=== PATIENT | male | born 1945 | race Caucasian/White ===

== ENCOUNTER 2020-01-25 11:34 | Inpatient (IN) ==
[2020-01-25] MEDS ORDERED: ZOFRAN IV PRN (14:42)
[2020-01-25] MEDS ORDERED: TYLENOL PO PRN (14:42)
[2020-01-25] MEDS ORDERED: NS 1,000 ML IV ONE (14:45)
--- NOTE | 2020-01-25 15:09 | Diag Imaging Result Doc PS360 ---
EXAM: CHEST-PORTABLE HISTORY: new admission TECHNIQUE: Single view COMPARISON: 01/12/2014 FINDINGS: The lungs are well expanded. The heart is not enlarged. The vessels are not distended. There are no infiltrates. No effusion identified. IMPRESSION: Negative exam. Electronically signed by John Jules 01/25/2020 3:07 PM
[2020-01-25 15:29] LABS: BASO% 0.9 % (0.0-0.8); EOS# 0.06 X1000 (0.0-0.7); EOS% 0.5 % (0.0-10.0); HEMATOCRIT 35.8 % (42.0-52.0); HEMOGLOBIN 12.2 g/dL (14.0-18.0); IMM GRAN# 0.06 X1000 (0.0-0.04); IMM GRAN% 0.5 % (0.0-0.5); LYMPH# 1.04 X1000 (1.2-3.4); LYMPH% 9.1 % (20.5-51.1); MCH 33.6 PG (27-31); MCHC 34.1 g/dL (33-37); MCV 98.6 FL (81-99); MONO# 0.69 X1000 (0.11-0.59); NEUT# 9.49 X1000 (1.4-6.5); PLT 277 X1000 (130-400); RBC 3.63 XMIL (4.7-6.1); RDW 14.9 % (11.5-14.5); WBC 11.44 X1000 (4.8-10.8)
[2020-01-25] MEDS: HALDOL IM PRN ×2 (15:48→22:22)
--- NOTE | 2020-01-25 15:58 | HISTORY AND PHYSICAL ---
CHIEF COMPLAINT: "They told me I had a cancer." The patient was direct admit from Dr. Rajan Gordon office for hypercalcemia and acute kidney injury. HISTORY OF PRESENT ILLNESS: Mr. Casey is a 74-year-old male who was a direct admit from Dr. Rajan Gordon's office for acute kidney injury and hypercalcemia. The patient is a rather poor historian and is slow to respond, unsure if there is some continued underlying altered mental status or this is left over from him being on Flexeril. He also carries a past medical history of anemia, psoriatic arthritis, followed by Dr. Bush in [place], essential hypertension, GERD, prostate cancer, Vitamin D and B deficiency, right bundle branch block. Dr. Gordon reported that he had been switched from oral methotrexate to injectable around 2018 any he had also been started on Flexeril January 06 and took it through January 15 and stopped it secondary to having some altered mental status. He was sleeping more, leaning when he walked, not dizzy, but did have some slurred speech at times. There was some reported visual hallucinations a couple days prior, but none since, and per his report, his mental status had continued to improve. He checked some lab work and was found to have a calcium level of 15 and creatinine of 2.1. He requests direct admission for treatment. PAST MEDICAL HISTORY: Prostate cancer, I believe, followed by Dr. Rao and Dr. Ayers and Radiation Oncology, bilateral cataract, anemia, psoriatic arthritis, chronic fatigue, COPD, vitamin D and B deficiency, essential hypertension, GERD, mitral valve insufficiency, osteoarthritis of the knee, right bundle branch block. PAST SURGICAL HISTORY: Hernia repair in [address] Rodriguez. The patient was not able to tell me about any other surgeries. ALLERGIES: Allergies no known drug allergies. MEDICATIONS: Home medications are being compiled. LABORATORY DATA: Is currently pending as well as diagnostic data. BUN and creatinine from Dr. Gordon's office: BUN 53, creatinine 2.1, GFR 30. Sodium 141, potassium 3.9, chloride 99, carbon dioxide 27, calcium was 15, albumin 4, T bilirubin was 3.1, alkaline phosphatase 214, AST 66, ALT 65. REVIEW OF SYSTEMS: Hard to obtain from the patient, unsure if this is his baseline. Assessment and Plan 1. Hypercalcemia will check PTH with calcium and phosphorus and continue with aggressive IV hydration with bolus and recheck in AM. 2. MICHEAL unsure of any underlying CKD will hydrate and recheck in am consult Gladish if needed. 3. Clinical dehydration continue with IVFs, patient reports "they" tell him he's not eating or drinking enough. 4. Prostate Cancer followed by urology will do CT of chest and abdomen with contrast when kidney function improves to rule out metastasis. Dictated by NEYMAR Capps for Gonzalo Baker MD cc: Gonzalo Baker MD [facility]
[2020-01-25 16:07] LABS: URINE SOURCE CLEAN CATCH
[2020-01-25 16:09] LABS: ALBUMIN 3.4 g/dL (3.5-5.0); CALCIUM 16.2 mg/dL (8.8-10.2); CREATININE 1.8 mg/dL (0.7-1.2); MAGNESIUM 1.8 mg/dL (1.5-2.7); POTASSIUM 3.1 mmol/L (3.5-5.1); TOTAL BILIRUBIN 3.03 mg/dL (0.20-1.00); TOTAL PROTEIN 6.7 g/dL (6.3-8.3)
[2020-01-25 16:12] LABS: LYMPHS 8 % (21-51); MONO 8 % (1-9); SEGS 84 % (42-75)
[2020-01-25 16:13] LABS: CALCIUM 16.2 mg/dL (8.8-10.2); PHOSPHORUS 3.7 mg/dL (2.7-4.5)
[2020-01-25 16:13] LABS: BILIRUBIN URINE SMALL (NEGATIVE); BLOOD URINE SMALL (NEGATIVE); COLOR YELLOW; GLUCOSE URINE NEGATIVE (NEGATIVE); KETONE URINE NEGATIVE (NEGATIVE); LEUKOCYTES URINE TRACE (NEGATIVE); NITRITE URINE NEGATIVE (NEGATIVE); PROTEIN URINE 70 mg/dL (NEGATIVE); SP GRAVITY URINE 1.017; TURBIDITY URINE CLEAR (CLEAR); UROBILINOGEN URINE 6 mg/dL (NORMAL)
--- NOTE | 2020-01-25 16:16 | HISTORY AND PHYSICAL ---
ADDENDUM: The patient was seen and examined by me [id number]. All the laboratory coming from his doctor's office, Dr. Gordon, and the new laboratory have been reviewed. Also, I reviewed the images, right now, a chest x-ray without any kind of new issues. The patient has been sent by his primary care doctor because of confusion and abnormal lab work. It looks like his BUN, creatinine, LFTs, calcium level are high. The patient is confused. He is oriented to person and place but he gets agitated on and off and confused on and off as well. He is not oriented to time. On my physical examination, he seems to be, at this moment, relaxed and answering some my questions. I do not see any focal neurological deficits but his mouth is really dry. He looks really dehydrated. Breath sounds are fine and trace lower extremity edema. I had a conversation with Marybel Casey, his , by phone. Apparently, he was having neck pain and one of his doctors recommended a muscle relaxant. He took that medication for a week and he became really sleepy, confused, and agitated on and off. He stopped basically eating and drinking for the past 2 weeks, and more weak, more dehydrated, and confused. He had the lab work done yesterday at his doctor's office that showed an elevated BUN, creatinine, LFTs, and calcium level mainly. On the other hand, he has a history of prostate cancer but it looks like his prostate had been [place] [address] Wise has been doing radiation. As per the , his PSA has been stable. We will admit this patient and we will rehydrate this patient. Hopefully, his kidneys will start working again and hopefully, his mentation is going to get better as well. As per the , he was completely fine a few weeks ago. On the other hand, we discussed about his advanced directives. The stated that for now, she wants to keep him a Full Code and if something happens in the future, we will discuss that again. I agree with the rest of the nurse practitioner's assessment and plan. cc: Gonzalo Baker MD
[2020-01-25 16:18] LABS: UR EPITHELIAL CELLS <10 /HPF (<10); URINE BACTERIA NEGATIVE /HPF; URINE RBC <10 /HPF (<10)
[2020-01-25] MEDS: NS 1,000 ML IV SCH ×2 (16:26→22:23)
[2020-01-25 16:38] LABS: URINE CRYSTALS CA OXALATE PRESENT
[2020-01-26 05:33] LABS: BASO# 0.07 X1000 (0.0-0.2); BASO% 0.6 % (0.0-0.8); EOS# 0.03 X1000 (0.0-0.7); EOS% 0.3 % (0.0-10.0); HEMATOCRIT 34.5 % (42.0-52.0); HEMOGLOBIN 11.5 g/dL (14.0-18.0); IMM GRAN# 0.05 X1000 (0.0-0.04); IMM GRAN% 0.5 % (0.0-0.5); LYMPH# 0.76 X1000 (1.2-3.4); LYMPH% 6.9 % (20.5-51.1); MCHC 33.3 g/dL (33-37); MCV 99.1 FL (81-99); MONO# 0.94 X1000 (0.11-0.59); MONO% 8.5 % (1.7-9.3); MPV 11.5 FL (7.4-10.4); NEUT# 9.16 X1000 (1.4-6.5); NEUT% 83.2 % (42.2-75.2); PLT 253 X1000 (130-400); RBC 3.48 XMIL (4.7-6.1); RDW 14.9 % (11.5-14.5); WBC 11.01 X1000 (4.8-10.8)
[2020-01-26 06:16] LABS: ALB/GLOB RATIO 1.1; ALBUMIN 3.4 g/dL (3.5-5.0); CREATININE 1.8 mg/dL (0.7-1.2); MAGNESIUM 1.7 mg/dL (1.5-2.7); POTASSIUM 2.7 mmol/L (3.5-5.1); TOTAL BILIRUBIN 2.62 mg/dL (0.20-1.00); TOTAL PROTEIN 6.5 g/dL (6.3-8.3)
[2020-01-26] MEDS ORDERED: POTASSIUM CHLORIDE 20% LIQUID PO ONE (07:23)
[2020-01-26] MEDS ORDERED: 1/2 NS 1,000 ML IV SCH (07:30)
[2020-01-26] MEDS: 1/2 NS + KCL 20 MEQ 1,000 ML IV SCH ×2 (08:46→17:58)
[2020-01-26] MEDS ORDERED: ZOMETA 4 MG in NS 100 ML IV ONE (10:55)
--- NOTE | 2020-01-26 11:16 | NEPHROLOGY CONSULTATION ---
DATE: 01/26/2020 REASON FOR CONSULTATION: Acute kidney injury and hypercalcemia. HISTORY OF PRESENT ILLNESS: Mr. Casey is a 74-year-old man, who is referred to the emergency room from Dr. Gordon's office because of hypercalcemia and acute kidney injury. Currently he can look at me and say the word "yes," but he was not able to give me any other historical information or relay any symptoms. The chart indicates that he sees Dr. Gordon and recently had labs with the above findings. Has a history of prostate cancer, as well as hypertension, GERD, psoriatic arthritis, anemia, confusion, hallucinations, dizziness, slurred speech, and fall have happened recently. PAST MEDICAL HISTORY: As above. He has been followed by Dr. Rao and Dr. Ayers, as well as Radiation Oncology for his prostate cancer. HOME MEDICATIONS: Include esomeprazole, multivitamin, methotrexate, aspirin, hydrocodone. ALLERGIES: None. SOCIAL HISTORY: Not obtainable currently. FAMILY HISTORY: Not obtainable currently. REVIEW OF SYSTEMS: Not obtainable currently. PHYSICAL EXAMINATION: Vital Signs: Blood pressure 166/83, heart rate 88, respirations 19, afebrile. General: He is a chronically ill, elderly man, but in no acute distress. He is mumbling and moving constantly. Skin: Dry and somewhat scaly. HEENT: Pupils are equal. Conjunctivae are pink. Oropharynx is dry. Tongue is coated. Poor dentition. Neck: Supple. Trachea is midline. Neck veins are not visible. Heart: PMI is displaced and enlarged. Auscultation demonstrates a regular rhythm with a systolic murmur present. No gallops, no rubs. Lungs: Have equal excursion, equal breath sounds. No crackles or wheezes. No accessory muscle use or retractions. Abdomen: Soft, nontender. Bowel sounds are present. No organomegaly, masses, bruits. Extremities: Trace edema. No clubbing or cyanosis. Neurologic exam: As above. He moves all extremities. IMPRESSION: 1. Acute kidney injury. Baseline creatinine 0.9 in 2018. High BUN:creatinine ratio, likely related to volume contraction. 2. Hypercalcemia. No improvement with intravenous fluids thus far. He is moving too much to undergo skeletal survey or CT abdomen. So, these tests will be deferred. We will continue aggressive fluid resuscitation. We will give a small dose of bisphosphonate. Will speak with Dr. Gordon and see if any further information can be gleaned. He has a suppressed parathyroid hormone. Certainly metastatic prostate cancer would be a reasonable explanation. His PSA however is 0.11. We will check PTH RP and vitamin D levels. Imaging studies when the patient is able. cc: Jayant Armenta MD
--- NOTE | 2020-01-26 12:31 | PROGRESS NOTE ---
DATE: 01/26/2020 SUBJECTIVE: This patient is still lying in bed. He is not complaining of pain but he has been slightly agitated on and off. His sodium level increased from 142 to 150. His potassium level decreased from 3.1 to 2.7 and his calcium level is still high, even though he has been getting fluids. LFTs about the same compared to yesterday. He is still confused. It looks like he is swallowing. I will switch the normal saline to half NS and I will add potassium to his medications. Also, I will give him some potassium by mouth. I will ask nephrology department to evaluate this patient due to his hypercalcemia, hypernatremia, hypokalemia, and possible acute kidney injury. He has a history of prostate cancer which apparently has been removed and also Dr. Wise has been doing radiation. His PSA level is 0.1. Nephrology department has requested PTH related peptide, vitamin D, and also some images but this patient will not cooperate because of his encephalopathy, so probably we need to wait a little bit longer to get the images. OBJECTIVE: Vital Signs: Temperature 97.8 degrees, pulse 88, respiratory rate 19, blood pressure 166/83, oxygen saturation 95% on room air. HEENT: Head normocephalic. No trauma. PERRLA. Mouth is dry but he is a mouth breather. Neck: Supple. No JVD. Central trachea. Chest: Clear to auscultation. No wheezing. No rales. Abdomen: Soft, nontender, nondistended. No hepatosplenomegaly. Extremities: Trace edema. No clubbing, no cyanosis. He has some chronic venous stasis changes at the level of the left leg. Neurological Examination: The patient is sleepy but arousable. He is following commands on and off but he is confused. Laboratory: WBC 11.0, hemoglobin 11.5, hematocrit 34.5, platelets 253,000. Sodium 150, potassium 2.7, chloride 107, bicarbonate 26, BUN 49, creatinine 1.8, glucose 122, calcium 16, magnesium 1.7. AST 82, ALT 62, alkaline phosphatase 190, CRP 80.3, albumin 3.4. PTH intact is depressed at 10. ASSESSMENT AND PLAN: 1. Encephalopathy. This probably is multifactorial. As per the , he has been taking muscle relaxants. That has been stopped already. Apparently, when he started taking those medications, he was sleepy and he was not able to eat or drink. As per the , he was having mental problems including confusion and some agitation. On top of that, he has electrolyte imbalance including severe hypercalcemia which also can cause some issues related to his mental status. 2. Hypercalcemia, with depressed PTH. We will ask for a PTH related peptide and vitamin D as well. This patient has a history of prostate cancer. I will not be surprised if this patient has some metastatic disease to the bones, pending images so far. 3. History of prostate cancer, as above. 4. Hypernatremia. I will stop the normal saline and I will put him on half normal saline. 5. Hypokalemia. I will replace the potassium as well. 6. Anemia. I will get the anemia workup. The MCV is borderline high. 7. Elevated liver function tests. It looks like they were normal before in 2018. This could be related to severe dehydration. We will continue with the same management for now. We will monitor. cc: Gonzalo Baker MD
[2020-01-26] MEDS: APRESOLINE IV PRN (15:39)
[2020-01-26] MEDS: HALDOL IM PRN (21:29)
[2020-01-27] MEDS: APRESOLINE IV PRN (01:23)
[2020-01-27] MEDS: HALDOL IM PRN (01:23)
[2020-01-27] MEDS: 1/2 NS + KCL 20 MEQ 1,000 ML IV SCH (01:36)
[2020-01-27] MEDS ORDERED: LABETALOL IV PRN ×2 (02:12→04:44)
[2020-01-27] MEDS ORDERED: DUONEB (A & A) INH PRN (02:13)
[2020-01-27] MEDS ORDERED: MORPHINE IV ONE (02:15)
[2020-01-27 02:38] LABS: ALLEN TEST YES; BE 2.8 mmoll (-3.0-3.0); BLOOD TYPE ARTERIAL; HCO3-(ACT) 26.9 mmoll (20.0-26.0); METHB 1.2 % (0.0-1.5); O2(CT) 16.9 mL/dL (15.0-23.0); PCO2(98.6) 35 mmHg (35-45); PO2(98.6) 55 mmHg (60-100); SAMPLE BLOOD; SAO2 93.3 % (95.0-100.0); THB 13.4 g/dL (11.5-17.4); pH(98.6) 7.48 (7.35-7.45)
[2020-01-27 02:40] LABS: MODALITY CANNULA; O2HB 89.9 % (95.0-99.0)
[2020-01-27 05:35] LABS: BASO% 0.5 % (0.0-0.8); EOS# 0.01 X1000 (0.0-0.7); EOS% 0.1 % (0.0-10.0); HEMATOCRIT 38.6 % (42.0-52.0); HEMOGLOBIN 12.9 g/dL (14.0-18.0); IMM GRAN# 0.29 X1000 (0.0-0.04); IMM GRAN% 1.6 % (0.0-0.5); LYMPH# 0.68 X1000 (1.2-3.4); LYMPH% 3.7 % (20.5-51.1); MCH 33.4 PG (27-31); MCHC 33.4 g/dL (33-37); MONO# 1.62 X1000 (0.11-0.59); MONO% 8.8 % (1.7-9.3); MPV 11.9 FL (7.4-10.4); NEUT# 15.81 X1000 (1.4-6.5); NEUT% 85.3 % (42.2-75.2); PLT 299 X1000 (130-400); RBC 3.86 XMIL (4.7-6.1); RDW 15.4 % (11.5-14.5); WBC 18.51 X1000 (4.8-10.8)
[2020-01-27 06:01] LABS: ALB/GLOB RATIO 1.1; ALBUMIN 3.4 g/dL (3.5-5.0); CREATININE 1.8 mg/dL (0.7-1.2); MAGNESIUM 1.5 mg/dL (1.5-2.7); PHOSPHORUS 3.9 mg/dL (2.7-4.5); POTASSIUM 3.4 mmol/L (3.5-5.1); TOTAL BILIRUBIN 2.56 mg/dL (0.20-1.00); TOTAL PROTEIN 6.5 g/dL (6.3-8.3)
[2020-01-27 06:05] LABS: CALCIUM 14.5 mg/dL (8.8-10.2)
[2020-01-27 06:28] LABS: FERRITIN 2415 ng/mL (30-400)
--- NOTE | 2020-01-27 06:28 | Diag Imaging Result Doc PS360 ---
CHEST-PORTABLE - 01/27/2020 INDICATION: hypoxia COMPARISON: 01/25/2020 FINDINGS: The lungs are normally expanded and clear. Heart size and mediastinal contours are normal. No pneumothorax or pleural effusion. IMPRESSION: Negative exam. Electronically signed by Sanjiv Lanza 01/27/2020 6:25 AM
[2020-01-27] MEDS ORDERED: D5W + KCL 20 MEQ 1,000 ML IV SCH (07:30)
--- NOTE | 2020-01-27 07:43 | EKG Report ---
Test Performed on : 01/27/2020 07:34:07 AM Test Reason : Bradycardia Blood Pressure : / mmHG Vent. Rate : 123 BPM Atrial Rate : 123 BPM P-R Int : 188 ms QRS Dur : 138 ms QT Int : 432 ms P-R-T Axes : 054 -04 020 degrees QTc Int : 618 ms Sinus tachycardia. Right bundle branch block Abnormal ECG When compared with ECG of 01-MAY-2016 15:10, Vent. rate has increased BY 61 BPM Right bundle branch block has replaced Incomplete right bundle branch block Confirmed by Melinda MEDRANO, Ramírez Patton ([id number]) on 01/28/2020 9:11:01 AM
[2020-01-27 07:51] VITALS: BP 156/79
[2020-01-27] MEDS ORDERED: LOVENOX SUBQ SCH ×2 (08:30→09:00)
--- NOTE | 2020-01-27 09:15 | PROGRESS NOTE ---
DATE: 01/27/2020 SUBJECTIVE: This patient is basically unresponsive. He has been placed on the BiPAP machine because of hypoxemic respiratory failure, his calcium level is still elevated. His x-ray is clear. Yesterday, he was actually following commands a little bit and trying to eat some food, but overnight this patient had a sudden change of his mental status and breathing, I talked to the family and at this point we have changed the resuscitation status from full code to Do Not Resuscitate level 1. There is a possibility of pulmonary embolism. I will give him a dose of Lovenox, and I will try to get a V/Q scan, but I am not sure if we can do it because he has been placed on a BiPAP machine at 100%. We will ask Radiology Department to see if they can do a V/Q scan, even though he is on 100% on the BiPAP machine, his has requested to do everything medically but not to be aggressive. If his heart stops beating or he stops breathing, we will allowed a natural for this patient, I have requested palliative care nurse to see the patient as well, again, he has been placed Do Not Resuscitate level 1, and we had a conversation for at least 20 to 25 minutes. OBJECTIVE: Vital Signs: Temperature 100.1 degrees, pulse 123, respiratory rate 40, blood pressure 156/79, oxygen saturation 88% on the BiPAP machine, 100% FiO2. HEENT: Head normocephalic. No trauma. PERRLA. His mouth is dry. Neck: Supple. No JVD. Central trachea. Chest: Some crepitus at the bases. Abdomen: Soft, it is not distended. Extremities: He has edema. No clubbing. No cyanosis. Chronic changes on the left lower extremity on the skin. Neurological Examination: The patient is lethargic, basically unresponsive. LABORATORY: WBC 18.5, hemoglobin 12.9, hematocrit 38.6, platelets 299,000. Sodium 151, potassium 3.4, chloride 109, bicarbonate 26, BUN 48, creatinine 1.8, glucose 135, calcium 14.5. Iron 52, but ferritin level is 2415. AST 99, ALT 72, alkaline phosphatase 197, total bilirubin 2.5. Vitamin B12 more than 2000, folic acid 13.3, vitamin D is 22, PTH done a couple days ago 10, TSH 1.99. ASSESSMENT AND PLAN: 1. Encephalopathy, likely this is multifactorial. Per the he has been taking muscle relaxant, but they stopped it some days ago. Apparently, after taking those medications, he started to be more sleepy, and lethargic and not eating or drinking for at least a couple weeks, per the he was having some confusion and agitation, on top of that he has electrolyte imbalance including hypercalcemia, hypernatremia, I am not sure if he has a baseline cognitive impairment. Today, this patient is lethargic. Yesterday, he was more responsive, but he started problem breathing and he became hypoxemic overnight. 2. Acute hypoxemic respiratory failure. He has been placed on the BiPAP machine and at this point, he is around 100%, he seems to be critically sick at this point and I talked to the about it. They have decided to continue with treatment but we will not be aggressive if he has a cardiac respiratory arrest, at this point I am not sure why this patient is hypoxemic. I will try to rule out PE and actually I will give the 1st dose of Lovenox. 3. History of prostate cancer, the last bone scan done was 3 years ago, but no follow-up after that, is highly suspicious for a metastatic disease given his hypercalcemia that did not get better with IV fluids. 4. Hypercalcemia with depressed parathyroid hormone, pending PTH- related peptide. Vitamin D seems to be okay. The patient has a history of prostate cancer pending some images but I am not sure if we can do it at this point. 5. Hypernatremia. I stopped yesterday the normal saline and I put him on half-normal saline, he is still hypernatremic, so I will go ahead and change it to D5W. 6. Hypokalemia. I will replace the potassium through the IV fluids. 7. Anemia. Will monitor for now. 8. Elevated liver function tests. They were normal before in 2018. I thought that was related to severe dehydration, but he is euvolemic at this point and actually he is having a good urine output. LFTs are still elevated. For now, I think I will just monitor, if he gets a little bit better I will ask Gastroenterology Department to see this patient. The patient is remarkably sick. It is unlikely that he will survive this hospitalization in my opinion, I already discussed the case with the for at least 20 to 25 minutes, for now we will treat this patient medically. She has requested no intubation for CPR for this patient, I have placed this patient Do Not Resuscitate level 1, and I have consulted palliative care already. cc: Gonzalo Baker MD
[2020-01-27] MEDS ORDERED: ATIVAN IV PRN ×3 (09:43→12:40)
[2020-01-27] MEDS: MORPHINE IV PRN ×2 (09:59→12:14)
[2020-01-27] MEDS ORDERED: ATROPINE 1 % OPHTH SOLN SL PRN (11:24)
[2020-01-27] MEDS ORDERED: TYLENOL PR PRN (11:24)
--- NOTE | 2020-01-27 12:26 | NEPHROLOGY PROGRESS NOTE ---
DATE: 01/27/2020 SUBJECTIVE: Counseling only. I discussed the case with Dr. Curiel, the and the 2 children. Unfortunately his status has progressively deteriorated such that he is now on BiPAP. Remains unresponsive. I offered dialysis as a potential method for managing hypercalcemia. However, this is just one of a series complicated problems which may include pulmonary embolus and malignancy. The patient has emphatically stated that he did not want life supporting measures and this is deemed to include both dialysis and ventilator support. He will be transferred to comfort care only. We will sign off you. cc: Jayant Armenta MD
[2020-01-27] MEDS ORDERED: MORPHINE IV PRN ×2 (12:40→13:27)
--- NOTE | 2020-01-27 18:08 | DISCHARGE SUMMARY ---
ADMISSION DATE: 01/25/2020 DISCHARGE DATE: 01/27/2020 DISCHARGE DIAGNOSES: 1. Encephalopathy. 2. Acute hypoxemic respiratory failure. 3. History of prostate cancer. 4. Hypercalcemia. 5. Hypernatremia. 6. Hypokalemia. 7. Anemia. 8. Elevated liver function tests. 9. Do Not Resuscitate level 1. HOSPITAL COURSE: The patient has been admitted on 01/25/2020 due to altered mental status and confusion, he basically has been sent by Dr. Gordon due to abnormal lab work and encephalopathy. As per the he has been having some issues for some weeks, especially after taking some muscle relaxant. The patient has been declining during this hospitalization and in the night he started having acute hypoxemic respiratory failure. This has been notified to the . He has also been hypernatremic, hypercalcemic, which is not responding to the treatment. He has a kidney dysfunction, which probably is new. He seems to be remarkably sick. ASSESSMENT AND PLAN: He will be discharged but he will be admitted to inpatient hospice. Family has requested comfort measures only. I had a long discussion with the by phone in the morning, and she also asked to put this patient Do Not Resuscitate. cc: Gonzalo Baker MD
[2020-01-28] MEDS ORDERED: LEVAQUIN 500 MG/D5W 500 MG/100 ML IVPB IV SCH (11:00)
== END 2020-01-27 13:36 | disposition expired | DRG 640 ==
LOC: DIRADM → OBSVTOIN 11:34 → SUATTDRO 11:34 → 1N 13:05
PROVIDERS: ATTEND Internal Medicine

== ENCOUNTER 2020-01-27 13:37 | Inpatient (IN) ==
[2020-01-27] MEDS ORDERED: ATIVAN IV PRN (14:19)
[2020-01-27] MEDS ORDERED: TYLENOL PR PRN (14:19)
[2020-01-27] MEDS ORDERED: MORPHINE IV PRN (14:19)
[2020-01-27] MEDS ORDERED: ATROPINE 1 % OPHTH SOLN SL PRN (14:20)
--- NOTE | 2020-01-27 15:47 | PROGRESS NOTE ---
DATE: 01/27/2020 The palliative care nurse met with the family and at this point this patient is not only a DNR Level 1 but also they asked for comfort measures only. The medication has been changed so basically hospice will take over. He will be admitted to hospice. cc: Gonzalo Baker MD
--- NOTE | 2020-01-27 18:01 | DISCHARGE SUMMARY ---
ADMISSION DATE: 01/27/2020 DISCHARGE DATE: 01/27/2020 DIAGNOSES: 1. Acute hypoxemic respiratory failure. 2. History of prostate cancer highly suspicious for metastatic disease. 3. Hypercalcemia. 4. Hyper electrolyte balance with hypernatremia and hypokalemia. DIAGNOSTICS: There are none. HOSPITAL COURSE: Mr. Casey was originally admitted to [facility] on 01/25/2020 for hypercalcemia and acute kidney injury. He has a known history of prostate cancer followed by Urology. He was encephalopathic on admission, this was felt to be multifactorial the patient has had a history of using muscle relaxers. He was found to have a calcium of 15 with a creatinine of 2.1, therefore he was admitted. Kathi Hamlin was consulted. Nephrology was consulted. Unfortunately he deteriorated through the hospitalization. On 01/27/2020 he became unresponsive. He was placed on BiPAP for hypoxemic respiratory failure. Dr. Curiel and Dr. Armenta discussed the case with the patient's and 2 children. The family stated that the patient had emphatically expressed that he did not want any life supporting measures to include dialysis and ventilator support, therefore the family opted to follow the patient's wishes. The patient was made a DNR level 1. They then met with Palliative Care and asked for comfort measures only. The patient was admitted to hospice, and at 5:00 p.m. today he was found to be asystolic with no breath sounds or blood pressure obtainable. He was pronounced at 5:00 p.m. Dictated by NEYMAR Miguel for Gonzalo Baker MD cc: NEYMAR Miguel MD
== END 2020-01-27 17:00 | disposition expired | DRG 189 ==
LOC: 1N 13:37
PROVIDERS: ATTEND Internal Medicine